=== PATIENT | female | born 1955 | race Caucasian/White ===

== ENCOUNTER 2024-06-15 17:43 | Emergency (ER) | payer MEDICARE, SELFPAY ==
[2024-06-15 17:44] VITALS: BP 145/63; PULSE 98; RESP 15; TEMP 36.7; O2SAT 98
--- NOTE | 2024-06-15 18:28 | DI.CT_ITS ---
Exam(s) CT HEAD WO/W FACIAL W EXAM: CT HEAD WO/W FACIAL W CLINICAL HISTORY: right orbital cellulitis, frontal ALAN, VENOGRAM. TECHNIQUE: Imaging Protocol: Axial computed tomography images with coronal and sagittal reformatted images were created and reviewed. CONTRAST MATERIAL: Intravenous: Omnipaque 350 contrast volume:100 mL COMPARISON: No exams were available for comparison FINDINGS: HEAD WITH/WITHOUT AND FACE WITH: Ventricles and Extra axial spaces: Normal in size and morphology for the patient's age. Intracranial veins: The superior and inferior sagittal sinuses, straight sinus, transverse sinus and sigmoid sinuses are unremarkable. Hemorrhage: None. Cerebral parenchyma: There are areas of decreased attenuation in the white matter most consistent wit h chronic microvascular ischemic disease. There is no mass effect present. Enhancement: No intracranial enhancement is seen. [place]: Unremarkable. Midline shift: None. Brainstem/Cerebellum: Normal. Calvarium: Please see the section below under paranasal sinuses and mastoids. Visualized Paranasal sinuses/Mastoids: There is a heterogeneous cystic and solid mass centered at the bridge of the nose measuring 5.7 craniocaudad by 5.0 transverse by 4.4 cm AP. There are destructive changes seen in the floor of the frontal sinus in the anterior wall of the frontal sinus. There is also destructive changes seen in the anterior ethmoids bilaterally, the medial wall of the left orbit , the medial wall of the right orbit and the nasal bones bilaterally. There is also destructive benitez ge seen at the anterior aspect of the nasal septum. It is in direct contact with the anterior aspect of the right globe suggesting infiltration. There is fluid seen in the frontal sinus which may refl ect obstruction. There is mild mucosal thickening in the right maxillary sinus. The left maxillary sinus is unremarkable. The mastoid air cells are clear. The sphenoid sinuses are clear. Globes, extraocular muscles, optic nerves and retrobulbar fat: The left globe appears unremarkable. Upper aerodigestive tract: Normal. Mandible and bilateral temporomandibular joints: Normal. Soft tissues: Normal. IMPRESSION: 1. 5.7 x 5.0 x 4.4 cm destructive lesion centered in the nasal bridge with involvement of the frontal sinus, ethmoid air cells, right orbit and bilateral periorbital soft tissues.Differential considerat ions are neoplasm versus infection. 2. Cerebral atrophy and chronic microvascular ischemic disease. 3. No evidence of an acute territorial infarct. 4. Findings were discussed with Dr. Garcia on 06/15/2024. RADIATION DOSE DELIVERED: 2,085.99mGy.cm Total DLP 2,085.99mGy.cm Total DLP DATA REPOSITORY: All CT scans at this facility are submitted to the National Radiology Data Registry (NRDR) Dose Index Registry (DIR) with the [employer] (ACR). RADIATION OPTIMIZATION: All CT scans at this facility use at least one of these dose optimization te chniques: automated exposure control; mA and/or kV adjustment per patient size (includes targeted exa ms where dose is matched to clinical indication); or iterative reconstruction.
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
[2024-06-15 18:41] LABS: Abs Immature Grans 0.01 10^3/uL (0.0-0.06); Absolute Basophil Count 0.01 10^3/uL (0.0-0.2); Absolute Lymphocyte Count 1.24 10^3/uL (1.2-3.4); Absolute Monocyte Count 0.37 10^3/uL (0.1-0.8); Absolute Neutrophil Count 4.44 10^3/uL (1.2-6.7); Basophils % 0.2 %; HCT 29.9 % (36.0-46.0); Immature Grans % 0.2 %; Lymphocytes % 20.4 %; MCH 35.3 pg (27.0-33.0); MCHC 33.4 % (32.0-36.0); MCV 106 fL (80-95); MPV 9.7 fL (8.0-11.0); Monocytes % 6.1 %; Neutrophils % 73.1 %; Platelet Count 213 10^3/uL (130-400); RBC 2.83 10^6/uL (3.93-5.22); WBC 6.07 10^3/uL (4.4-10.8)
[2024-06-15 18:56] LABS: Macrocytosis 1+
[2024-06-15 18:58] LABS: ALT 9 U/L (14-59); AST 12 U/L (15-37); Albumin 2.7 g/dL (3.4-5.0); Alkaline Phosphatase 113 U/L (46-116); Anion Gap 8.9 mmol/L (3-11); BUN 21 mg/dL (7-18); Bilirubin, Total 0.3 mg/dL (0.2-1.0); CO2 26.1 mmol/L (21.0-32.0); CREATININE 1.2 mg/dL (0.55-1.02); Calcium 8.6 mg/dL (8.5-10.1); Chloride 103 mmol/L (98-107); Glucose 85 mg/dL (74-106); Potassium 3.6 mmol/L (3.5-5.1); Sodium 138 mmol/L (136-145)
[2024-06-15] MEDS: Normal Saline - Diluent 50 ML VIAL IJ (19:14)
[2024-06-15] MEDS: Omnipaque 350 MG/ML 100 ML BTL IJ (19:15)
[2024-06-15 20:25] VITALS: BP 143/70; PULSE 96; RESP 17; TEMP 36.8; O2SAT 95
[2024-06-15] MEDS: Clindamycin 150 MG CAP, 12 CAPS/BTL 450 MG PO (20:25)
[2024-06-15 20:27] VITALS: BP 143/70; PULSE 96; RESP 17; TEMP 36.8; O2SAT 95
--- NOTE | 2024-06-16 09:27 | NUR.NOTE ---
Nursing Note:Pt called to ask if it would be okay to apply heat to her eye. She reported that he had previously applied heat and it did help significantly with the pain. There was nothing mentioned in her discharge about utilizing ice/ heat for discomfort but these are often utilized to help with non- medication related pain relief. I told her that if it has helped then it should be okay to continue to use this method (since nothing was mentioned in the discharge instructions about discontinuing this method). She was instructed to be cautious of how long and how hot the heat was being applied for to help reduce the chance of burning herself. Pt vocalized understanding that it is typically okay to apply heat for 20 minutes to the affected area and to be very careful about the temperature. It is okay to apply a barrier between the hot pack and her skin to help prevent burn.
== END 2024-06-15 20:27 | disposition home or self-care (01) ==
PROVIDERS: Emergency Provider Student in an Organized Health Care Education/Training Program
DX: R22.0 Localized swelling, mass and lump, head (principal); J34.89 Other specified disorders of nose and nasal sinuses; J44.9 Chronic obstructive pulmonary disease, unspecified; I50.9 Heart failure, unspecified; F17.200 Nicotine dependence, unspecified, uncomplicated
CPT/HCPCS: 36415; 80053; 87077; 99285; 70470; 70487; 85025; 87070; 87205; J3490

== ENCOUNTER 2024-07-25 02:44 | Outpatient (CLI) | payer MEDICARE, SELFPAY ==
--- NOTE | 2024-07-25 08:45 | DI.MRI_ITS ---
Exam(s) MR ORBIT FACIAL NECK WO/W EXAM: MR ORBIT FACIAL NECK WO/W CLINICAL HISTORY: Abnormal brain CT,facial mass,r22.0,? neoplasm TECHNIQUE: Multiplanar multisequence MRI was performed. COMPARISON: No exams were available for comparison FINDINGS: PARANASAL SINUSES: There is a large peripherally enhancing destructive multiloculated collection versus necrotic mass mosqueda ving epicenter in the region of the frontoethmoidal recesses and invading the frontal sinuses and jonathan al passages and anterior ethmoidal air cells and extending to the subcutaneous tissues over the upper nasal region. This mass measures approximately 5.5 cm craniocaudal by 4 cm AP by 4.7 cm wide and im pinges upon the most medial aspect of both orbits. This mass is causing destruction of the anterior wall of the frontal sinuses and frontoethmoidal rece sses. Suspicion for also involvement of the anterior medial wall of the right orbit. There does not appear to be involvement of the maxillary and sphenoid sinuses which are clear. There is involvemen t of the anterior superior nasal septum. NASAL TURBINATES: Appear intact There does not appear to be obvious involvement of the intracranial compartment at this time NASOPHARYNX: Unremarkable OROPHARYNX: Unremarkable HYPOPHARYNX: Unremarkable SALIVARY GLANDS: Parotid and submandibular glands are not involved. PITUITARY GLAND/CAVERNOUS SINUSES: Remarkable. Not involved LYMPH NODES: There are no prominent lymph nodes in either side of the neck. INTRACRANIAL: There is abundant bilateral periventricular signal abnormality which is probably consis tent with chronic small vessel disease. Nonenhancing. 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 Measurements of this large destructive mass are approximatel y 5.5 cm x 4 cm x 4.7 cm. The main diagnostic considerations are for verrucous carcinoma/squamous ce ll carcinoma or other invasive sinonasal malignancy versus is aggressive infection such as invasive f ungal sinusitis or aggressive bacterial infection. Less likely a giant mucocele. Biopsy for histopathological diagnosis is recommended. DATA REPOSITORY:
[2024-07-25] MEDS: Gadoterate meglumine 20 ML SYRINGE IVP (15:15)
[2024-07-25] MEDS: Normal Saline Flush 10 ML SYR IJ (15:32)
--- NOTE | 2024-07-25 18:43 | DI.VRAD_ITS ---
PROCEDURE INFORMATION: Exam: MR Face Without and With Contrast Exam date and time: 07/25/2024 2:50 PM Age: 68 years old Clinical indication: Condition or disease; Other: Facial mass TECHNIQUE: Imaging protocol: Magnetic resonance imaging of the face without and with contrast. COMPARISON: CT HEAD WO/W FACIAL W 06/15/2024 7:09 PM FINDINGS: Paranasal sinuses: Fluid level in the frontal sinuses with subtotal opacification Orbital cavities: Orbits are normal. Globes are unremarkable. Nasopharynx: Pharynx: Unremarkable. Larynx: Visualized larynx is unremarkable. Salivary glands: Visualized submandibular and parotid glands are unremarkable. Lymph nodes: No lymphadenopathy. Soft tissues: Peripherally enhancing collection versus necrotic mass in the superior nasal and inferior frontal tissues with multiple areas of loculation measuring up to 3 x 1.5 cm in superior to inferior and anterior to posterior dimensions. The heterogeneous collection versus mass measures 4.5 cm in medial to lateral dimensions Bones/joints: Unremarkable. IMPRESSION: Frontal sinusitis as described. Overlying frontal/superior nasal multilocular abscess versus necrotic mass as noted Dictated and Authenticated by: John Cornell MD. Orderin Helena Erin PINTO
== END 2024-07-25 03:04 ==
PROVIDERS: Visit Provider Nurse Practitioner Family
DX: R93.89 Abnormal findings on diagnostic imaging of other specified body structures
CPT/HCPCS: 70543

== ENCOUNTER 2024-11-18 07:25 | Outpatient (CLI) | payer MEDICARE, SELFPAY ==
[2024-11-18 11:41] LABS: Abs Immature Grans 0.01 10^3/uL (0.0-0.06); HCT 31.7 % (36.0-46.0); HGB 10.8 g/dL (11.2-15.7); Immature Grans % 0.2 %; MCH 32.8 pg (27.0-33.0); MCHC 34.1 % (32.0-36.0); MCV 96 fL (80-95); MPV 10.3 fL (8.0-11.0); Platelet Count 174 10^3/uL (130-400); RBC 3.29 10^6/uL (3.93-5.22); RDW 13.1 % (11.7-14.6); RDW-SD 46.3 fL; WBC 5.75 10^3/uL (4.4-10.8)
[2024-11-18 11:58] LABS: ALT 11 U/L (14-59); AST 14 U/L (15-37); Albumin 3.1 g/dL (3.4-5.0); Alkaline Phosphatase 86 U/L (46-116); Anion Gap 8.7 mmol/L (3-11); BUN 15 mg/dL (7-18); Bilirubin, Total 0.5 mg/dL (0.2-1.0); CO2 22.3 mmol/L (21.0-32.0); Calcium 8.5 mg/dL (8.5-10.1); Chloride 104 mmol/L (98-107); Estimated GFR 60.61 (mL/min/1.73m2); Glucose 103 mg/dL (74-106); Potassium 4.2 mmol/L (3.5-5.1); Sodium 135 mmol/L (136-145); TSH 2.60 uIU/mL (0.36-3.74); Total Protein 8.4 g/dL (6.4-8.2)
== END 2024-11-18 07:26 | disposition home or self-care (01) ==
LOC: LBO 11-19 07:25
PROVIDERS: Visit Provider Internal Medicine Hematology
DX: C30.0 Malignant neoplasm of nasal cavity (principal)
CPT/HCPCS: 36415; 80053; 84439; 84443; 85025

== ENCOUNTER 2024-11-25 14:33 | Outpatient (CLI) | payer MEDICARE, SELFPAY ==
[2024-11-25 14:54] LABS: Abs Immature Grans 0.06 10^3/uL (0.0-0.06); HCT 27.2 % (36.0-46.0); HGB 9.4 g/dL (11.2-15.7); MCH 32.9 pg (27.0-33.0); MCHC 34.6 % (32.0-36.0); MCV 95 fL (80-95); MPV 11.0 fL (8.0-11.0); Platelet Count 123 10^3/uL (130-400); RBC 2.86 10^6/uL (3.93-5.22); RDW 12.4 % (11.7-14.6); RDW-SD 43.7 fL; WBC 3.77 10^3/uL (4.4-10.8)
[2024-11-25 15:07] LABS: ALT 8 U/L (14-59); AST 14 U/L (15-37); Albumin 2.8 g/dL (3.4-5.0); Alkaline Phosphatase 78 U/L (46-116); Anion Gap 9.8 mmol/L (3-11); BUN 17 mg/dL (7-18); Bilirubin, Total 0.8 mg/dL (0.2-1.0); CO2 24.2 mmol/L (21.0-32.0); Calcium 8.3 mg/dL (8.5-10.1); Chloride 97 mmol/L (98-107); Estimated GFR 68.77 (mL/min/1.73m2); Glucose 94 mg/dL (74-106); Potassium 3.5 mmol/L (3.5-5.1); Sodium 131 mmol/L (136-145); Total Protein 7.2 g/dL (6.4-8.2)
[2024-11-25 15:22] LABS: Immature Grans % 0.0 %; RBC Morphology Normal
== END 2024-11-25 14:34 | disposition home or self-care (01) ==
LOC: LBO 14:33
PROVIDERS: Visit Provider Internal Medicine Hematology
DX: C30.0 Malignant neoplasm of nasal cavity (principal)
CPT/HCPCS: 36415; 80053; 85025

== ENCOUNTER 2024-12-16 00:26 | Outpatient (RCR) | payer MEDICARE, SELFPAY ==
[2024-12-09] MEDS: Normal Saline Flush 10 ML SYR IVP (09:55)
[2024-12-09 10:34] LABS: Abs Immature Grans 0.02 10^3/uL (0.0-0.06); HCT 25.9 % (36.0-46.0); HGB 8.7 g/dL (11.2-15.7); Immature Grans % 0.4 %; MCH 33.2 pg (27.0-33.0); MCHC 33.6 % (32.0-36.0); MCV 99 fL (80-95); MPV 10.6 fL (8.0-11.0); Platelet Count 206 10^3/uL (130-400); RBC 2.62 10^6/uL (3.93-5.22); RDW 14.0 % (11.7-14.6); RDW-SD 49.5 fL; WBC 5.55 10^3/uL (4.4-10.8)
[2024-12-09 11:14] LABS: ALT 11 U/L (14-59); AST 13 U/L (15-37); Albumin 2.5 g/dL (3.4-5.0); Alkaline Phosphatase 68 U/L (46-116); Anion Gap 8.2 mmol/L (3-11); BUN 15 mg/dL (7-18); Bilirubin, Total 0.4 mg/dL (0.2-1.0); CO2 24.8 mmol/L (21.0-32.0); Calcium 8.1 mg/dL (8.5-10.1); Chloride 104 mmol/L (98-107); Estimated GFR 68.77 (mL/min/1.73m2); Glucose 99 mg/dL (74-106); Potassium 4.1 mmol/L (3.5-5.1); Sodium 137 mmol/L (136-145); TSH 1.94 uIU/mL (0.36-3.74); Total Protein 7.0 g/dL (6.4-8.2)
[2024-12-16] MEDS: Normal Saline Flush 10 ML SYR IVP (11:05)
[2024-12-16 11:55] LABS: Abs Immature Grans 0.12 10^3/uL (0.0-0.06); HCT 24.8 % (36.0-46.0); HGB 8.4 g/dL (11.2-15.7); MCH 34.1 pg (27.0-33.0); MCHC 33.9 % (32.0-36.0); MCV 101 fL (80-95); MPV 11.4 fL (8.0-11.0); Platelet Count 173 10^3/uL (130-400); RBC 2.46 10^6/uL (3.93-5.22); RDW 14.0 % (11.7-14.6); RDW-SD 51.6 fL; WBC 5.88 10^3/uL (4.4-10.8)
[2024-12-16 12:12] LABS: Hypochromasia 2+
== END 2024-12-20 23:59 | disposition home or self-care (01) ==
LOC: INF 00:26
PROVIDERS: Visit Provider Internal Medicine Hematology
DX: C30.0 Malignant neoplasm of nasal cavity (principal); Z79.899 Other long term (current) drug therapy; Z45.2 Encounter for adjustment and management of vascular access device
CPT/HCPCS: 36591; 80053; 84439; 84443; 85025